=== PATIENT | female | born 1940 | race Caucasian/White ===

== ENCOUNTER 2016-07-19 11:17 | Inpatient (IN) | payer MEDICARE, OTHER ==
[~2016-07-19] VITALS: Ht 157.5 cm; Wt 69.2 kg
[~2016-07-19 11:17] MED LIST: CLARITIN10 MG PO; FLONASE0.05 MG/AC NS; LISINOPRIL10 MG PO; NORVASC 10MG10 MG PO; PREVACID 30MG30 M1 PO; SIMVASTATIN20 MG PO; SINGULAIR10 MG PO; SYMBICORT1 AE1 IH; ZESTRIL 10MG10 MG PO
[2016-08-28] MEDS ORDERED: AMBIEN 10MG10 MG PO (11:53)
[2016-08-28] MEDS ORDERED: REQUIP5 MG PO (11:53)
[2016-08-28] MEDS ORDERED: ZOFRAN 4MG T4 MG/TAB PO (11:54)
[2016-08-29] VITALS (12 sets, daily range): BP systolic 117–167; BP diastolic 50–73; PULSE 82–100; TEMP 97.4–99.3
[2016-08-29] MEDS ORDERED: ZOCOR 10MG10 MG PO (05:40)
[2016-08-30 03:09] VITALS: BP 133/62; PULSE 84; TEMP 98.3
[2016-08-30 03:30] VITALS: BP 167/68; PULSE 99; TEMP 98.7
[2016-08-30 07:31] LABS: HEMATOCRIT 33.1 % (37.0-47.0); HEMOGLOBIN 10.7 g/dl (12.5-16.0)
[2016-08-30 07:41] VITALS: BP 148/64; PULSE 88; TEMP 98.2
[2016-08-30 12:06] VITALS: BP 154/60; PULSE 88
[2016-08-30 16:10] VITALS: BP 133/56; PULSE 91; TEMP 98.2
[2016-08-30 20:10] VITALS: BP 131/57; PULSE 89; TEMP 97.7
[2016-08-31 02:40] VITALS: BP 131/88; PULSE 98; TEMP 98.7
[2016-08-31 07:20] VITALS: BP 143/66; PULSE 100; TEMP 99
[2016-08-31 07:30] LABS: HEMATOCRIT 33.3 % (37.0-47.0); HEMOGLOBIN 10.9 g/dl (12.5-16.0)
[2016-08-31 11:45] VITALS: BP 116/93; PULSE 99; TEMP 98.5
[2016-08-31 15:55] VITALS: BP 116/50; PULSE 83; TEMP 97.7
[2016-08-31 20:37] VITALS: BP 129/59; PULSE 76; TEMP 98
[2016-09-01 02:21] VITALS: BP 127/67; PULSE 102; TEMP 98.2
[2016-09-01 04:37] VITALS: BP 140/61; PULSE 81; TEMP 99.3
[2016-09-01 07:54] LABS: HEMATOCRIT 30.2 % (37.0-47.0); HEMOGLOBIN 9.9 g/dl (12.5-16.0)
[2016-09-01 09:22] VITALS: BP 134/68; PULSE 100; TEMP 98.4
[2016-09-01 12:51] VITALS: BP 125/60; PULSE 99; TEMP 97.7
[2016-09-01 16:00] VITALS: BP 131/58; PULSE 99; TEMP 99.8
[2016-09-01 19:58] VITALS: BP 146/64; PULSE 84; TEMP 98.2
[2016-09-02 04:07] VITALS: BP 131/62; PULSE 77; TEMP 98.1
[2016-09-02 07:51] VITALS: BP 147/61; PULSE 84; TEMP 97.5
[2016-09-02] MEDS ORDERED: NORCO 325 MG-51 TAB PO (08:55)
[2016-09-02] MEDS ORDERED: XARELTO10 MG PO (08:57)
[2016-09-02] MEDS ORDERED: ZOFRAN INJ4 MG/2 ML PO (08:57)
[2016-09-02] MEDS ORDERED: SENOKOT S 50 MG1 TAB PO (08:57)
[2016-09-02 11:40] VITALS: BP 121/52; PULSE 86; TEMP 98.1
[2016-09-02 16:06] VITALS: BP 116/55; PULSE 87; TEMP 98
[2016-09-02 20:08] VITALS: BP 128/63; PULSE 81; TEMP 98.3
[2016-09-02 23:40] VITALS: BP 120/52; PULSE 86; TEMP 98.2
[2016-09-03] VITALS (7 sets, daily range): BP systolic 116–139; BP diastolic 52–74; PULSE 84–94; TEMP 97.7–98.5
[2016-09-04 00:19] VITALS: BP 135/58; PULSE 92; TEMP 98.4
[2016-09-04 04:00] VITALS: BP 119/54; PULSE 83; TEMP 98
[2016-09-04 07:35] VITALS: BP 128/66; PULSE 90; TEMP 98.3
[2016-09-04] MEDS ORDERED: CARAFATE 1GM1 G PO (09:30)
[2016-09-04] MEDS ORDERED: ZOFRAN 4MG T4 MG/TAB PO (09:30)
[2016-09-04] MEDS ORDERED: XARELTO10 MG PO (09:30)
[2016-09-04 09:41] VITALS: BP 128/66; PULSE 90; TEMP 98.3
[2016-09-04 09:48] VITALS: BP 128/66; PULSE 90; TEMP 98.3
== END 2016-09-04 10:55 | DRG 470 ==
LOC: JCC 08-29 05:17
PROVIDERS: Orthopaedic Surgery
PROC: 0SRC0J9 Replacement of Right Knee Joint with Synthetic Substitute, Cemented, Open Approach (ICD-10-PCS; principal; 2016-08-29 07:30)
PROC: 0DJ08ZZ Inspection of Upper Intestinal Tract, Via Natural or Artificial Opening Endoscopic (ICD-10-PCS; 2016-09-03)
DX: M17.11 Unilateral primary osteoarthritis, right knee (principal); I10 Essential (primary) hypertension; D64.9 Anemia, unspecified; K29.30 Chronic superficial gastritis without bleeding; K31.7 Polyp of stomach and duodenum
CPT/HCPCS: A4315; A9284; C1713; C1776; J0690; J1200; J2250; J2270; J2405; J2550; J2704; J3010; J7030; J7120

== ENCOUNTER → 2016-08-06 | Outpatient (CLI) | payer MEDICARE, OTHER ==
[~2016-08-06] MED LIST changes: +AMBIEN 10MG10 MG PO; +CARAFATE 1GM1 G PO; +NORCO 325 MG-51 TAB PO; +REQUIP5 MG PO; +SENOKOT S 50 MG1 TAB PO; +XARELTO10 MG PO; +ZOCOR 10MG10 MG PO; +ZOFRAN 4MG T4 MG/TAB PO; +ZOFRAN INJ4 MG/2 ML PO
== END ==
LOC: COL.LAB 14:02
DX: Z01.812 Encounter for preprocedural laboratory examination (principal); M25.861 Other specified joint disorders, right knee

== ENCOUNTER → 2016-08-09 | Outpatient (CLI) | payer MEDICARE, OTHER | LOC: COL.VAS 08:20 | DX: Z01.818 Encounter for other preprocedural examination (principal); Z86.718 Personal history of other venous thrombosis and embolism; M71.21 Synovial cyst of popliteal space [Baker], right knee ==

== ENCOUNTER → 2016-08-17 | Outpatient (CLI) | payer MEDICARE, OTHER | LOC: COL.LAB 11:04 | DX: Z01.812 Encounter for preprocedural laboratory examination (principal); M25.861 Other specified joint disorders, right knee ==

== ENCOUNTER → 2018-12-29 | Outpatient (CLI) | payer MEDICARE, OTHER | LOC: COL.RAD 07:21 | DX: R11.0 Nausea (principal) | CPT/HCPCS: A9541 ==

== ENCOUNTER → 2019-04-06 | Outpatient (CLI) | payer MEDICARE, OTHER | LOC: MC.RAD 12:40 | DX: N64.4 Mastodynia (principal); R92.2 Inconclusive mammogram | CPT/HCPCS: G0279 ==

== ENCOUNTER 2020-07-05 06:40 | Day surgery (SDC) | payer MEDICARE, OTHER ==
[~2020-07-05] VITALS: Ht 152.4 cm; Wt 59.0 kg
[2020-07-05 07:37] VITALS: BP 139/79; PULSE 95; TEMP 97.6
[2020-07-05] MEDS ORDERED: PROTONIX 40MG T40 MG PO (07:50)
[2020-07-05] MEDS ORDERED: ALLEGRA 180MG180 MG PO (07:51)
[2020-07-05] MEDS ORDERED: FLONASEALLERGY NS (07:52)
[2020-07-05 08:26] VITALS: BP 144/71; PULSE 91; TEMP 98.6
[2020-07-05 08:30] VITALS: BP 124/78; PULSE 87
[2020-07-05 08:45] VITALS: BP 153/63; PULSE 93
--- NOTE | 2020-07-05 08:57 | NUR ---
PT DENIES PAIN OR NAUSEA AT THIS TIME. RETURNED BACK FROM ENDO PROCEDURE ROOM. ASKING FOR SPRITE AND NEHAL CRACKERS. WILL CONT TO MONITOR
--- NOTE | 2020-07-05 09:02 | NUR ---
PT TOLERATING NEHAL CRACKERS AND TEA AND SPRITE. VERY TALKATIVE. DENIES PAIN OR NAUSEA.
[2020-07-05 09:05] VITALS: BP 139/59; PULSE 87
[2020-07-05 09:15] VITALS: BP 142/60; PULSE 84
--- NOTE | 2020-07-05 09:58 | NUR ---
PT A/OX3, STATES SHE IS ALITTLE 'DIZZY' DENIES PAIN, NAUSEA OR VOMITING. TOLERATING FOOD AND FLUIDS. IV DC'D, PT TOLERATED WELL. DISMISSAL INSTRUCTIONS GIVEN, PT DENIES QUESTIONS AND VOICES UNDERSTANDING. PT DISCHARGED VIA WC THROUGHT THE PT ENTRANCE TO DAUGHTER'S CAR. DAUGHTER, ADDIE DRIVING.
== END 2020-07-05 09:50 | disposition home or self-care (01) ==
LOC: SDCO 06:40
DX: K56.609 Unspecified intestinal obstruction, unspecified as to partial versus complete obstruction (principal); K57.30 Diverticulosis of large intestine without perforation or abscess without bleeding; J45.909 Unspecified asthma, uncomplicated; I10 Essential (primary) hypertension; E78.00 Pure hypercholesterolemia, unspecified; E78.5 Hyperlipidemia, unspecified; G47.33 Obstructive sleep apnea (adult) (pediatric); G47.00 Insomnia, unspecified; Z20.822 Contact with and (suspected) exposure to COVID-19; G25.81 Restless legs syndrome; I34.0 Nonrheumatic mitral (valve) insufficiency; G14 Postpolio syndrome; Z96.651 Presence of right artificial knee joint; G89.29 Other chronic pain; M79.7 Fibromyalgia; M54.9 Dorsalgia, unspecified; K21.9 Gastro-esophageal reflux disease without esophagitis; K44.9 Diaphragmatic hernia without obstruction or gangrene; Z79.2 Long term (current) use of antibiotics; Z93.0 Tracheostomy status; Z87.891 Personal history of nicotine dependence; Z79.899 Other long term (current) drug therapy; Z80.0 Family history of malignant neoplasm of digestive organs; Z88.1 Allergy status to other antibiotic agents; Z88.5 Allergy status to narcotic agent; Z79.51 Long term (current) use of inhaled steroids; Z88.4 Allergy status to anesthetic agent
CPT/HCPCS: J2250; J2704; J7120

== ENCOUNTER 2022-09-08 17:35 | Emergency (ER) | payer MEDICARE, OTHER ==
[~2022-09-08] VITALS: Ht 152.4 cm; Wt 54.5 kg
[~2022-09-08 17:35] MED LIST changes: +ALLEGRA 180MG180 MG PO; +FLONASEALLERGY NS; +MIRTAZAPINE7.5 MG PO; +PRINIVIL20 MG PO; +PROTONIX 40MG T40 MG PO; +REQUIP 1MG T1 MG/TAB PO; +TRANSDERM-0.5 MG/21 TD; +ULTRAM 50MG TAB50 MG PO
[2022-09-08 17:51] VITALS: TEMP 97.4
[2022-09-08 18:01] LABS: COLLECTION METHOD CLEAN CATCH
[2022-09-08 18:07] LABS: SQUAMOUS EPITHELIAL 0-2 /hpf (0-10); URINE BACTERIA Rare /hpf (NONE SEEN)
[2022-09-08 18:08] LABS: PH 5.5 (5-8); URINE APPEARANCE Hazy (CLEAR/HAZY); URINE BLOOD 3+ (NEGATIVE); URINE COLOR Yellow (YELLOW); URINE GLUCOSE Negative (NEGATIVE); URINE KETONE TRACE (NEGATIVE); URINE NITRATE Negative (NEGATIVE); URINE PROTEIN(semi-quant) Negative (NEGATIVE); URINE UROBILINOGEN 0.2 (NEGATIVE)
[2022-09-08 18:13] LABS: BASO % 0.4 % (0.0-2.0); EOS # 0.1 K/mm3 (0.0-0.7); EOS % 1.2 % (0.0-4.0); GRAN # 5.7 K/mm3 (1.4-6.5); HEMATOCRIT 35.8 % (37.0-47.0); LYMPH # 3.1 K/mm3 (1.2-3.4); LYMPH % 31.5 % (20.0-51.0); MEAN CELL VOLUME 92 fl (80.0-100.0); MEAN CORPUSCULAR HEMOGLOBIN 31 pg (27-31); MEAN CORPUSCULAR HGB CONC 34 g/dl (33.0-37.0); MEAN PLATELET VOLUME 10.5 fl (7.4-10.4); MONO # 0.8 K/mm3 (0.1-0.6); MONO % 8.1 % (1.7-9.3); PLATELET COUNT 324 K/mm3 (130-400); RED BLOOD COUNT 3.89 M/mm3 (4.10-5.30); REDCELL DISTRIBUTION WIDTH-CV 13.2 % (11.5-14.5)
[2022-09-08 18:37] LABS: ALBUMIN 3.7 gm/dL (3.4-4.8); BILIRUBIN,TOTAL 0.4 mg/dL (0.2-1.2); CALCIUM 9.8 mg/dL (8.4-10.2); CREATININE, serum 0.85 mg/dL (0.57-1.11); POTASSIUM 3.3 mmol/L (3.5-4.5); TOTAL PROTEIN 6.7 gm/dL (6.2-8.1)
[2022-09-08] MEDS ORDERED: AMOXICILLIN 8751 TAB PO (20:50)
[2022-09-08 21:26] VITALS: BP 148/88; PULSE 87
== END 2022-09-08 21:26 | disposition home or self-care (01) ==
LOC: COL.ER 17:35
PROVIDERS: Family Medicine
DX: K57.92 Diverticulitis of intestine, part unspecified, without perforation or abscess without bleeding (principal); Z28.310 Unvaccinated for COVID-19
CPT/HCPCS: J2405; J7120; Q9967